=== PATIENT | female | born 1990 | race Hispanic/Latino ===

== ENCOUNTER 2018-04-24 20:47 | Emergency (ER) | payer MEDICAID ==
[~2018-04-24] VITALS: Ht 160 cm; Wt 146.6 kg
[~2018-04-24 20:47] MED LIST: ELIMITE5 % EX; FIORICET PO; HYDROCORTISONE1.5 GM EX; NO CURRENT MEDS; PRE-NATAL OR; PRENATABS OR; TENORMIN25 M1 PO; TYLENOL500 MG PO; ULTRAM50 M1 OR
[2018-04-24 21:39] LABS: HEMATOCRIT 38.8 % (37.0-47.0); HEMOGLOBIN 12.4 g/dl (12.0-16.0); IMMATURE GRANULOCYTES 0.3 % (0.0-1.0); MEAN CELL VOLUME 81.7 fL CALC (80.0-100.0); MEAN CORPUSCULAR HGB 26.1 pG CALC (26.0-32.0); NEUT# 6.5 thou/uL (2.00-7.15); RED BLOOD COUNT 4.75 mill/uL (4.20-5.60); RED CELL DISTRI WIDTH 14.1 % (11.5-15.5)
[2018-04-24 21:53] LABS: ALBUMIN 4.4 g/dL (3.2-5.0); ALKALINE PHOSPHATASE 82 u/l (38-126); ANION GAP 18 (6-22 (CALC)); BILIRUBIN, TOTAL 0.4 mg/dL (0.0-1.4); BUN 13 mg/dL (7-17); BUN/CREATININE RATIO 17 (12-20 (CALC)); CARBON DIOXIDE 25 mmol/l (22-30); CHLORIDE 104 mmol/l (95-108); CREATININE 0.8 mg/dL (0.5-1.0); GFR > 60 ML/MIN (>=60 (CALC)); GFR FOR AFR.AMER. > 60 ML/MIN (>=60 (CALC)); POTASSIUM 3.7 mmol/l (3.5-5.1); SGPT/ALT 73 u/l (9-52); SODIUM 143 mmol/l (137-146); TOTAL PROTEIN 8.9 g/dL (6.3-8.2)
[2018-04-24 21:55] LABS: SGOT/AST 135 u/l (14-36)
[2018-04-24] MEDS ORDERED: VOLTAREN - GENE75 MG PO (22:23)
[2018-04-24 22:25] VITALS: BP 134/77
== END 2018-04-24 22:34 | disposition home or self-care (01) | DRG 313 ==
LOC: ED 20:47
PROVIDERS: Family Medicine
DX: R07.89 Other chest pain (principal); I10 Essential (primary) hypertension; F17.210 Nicotine dependence, cigarettes, uncomplicated

== ENCOUNTER 2018-11-21 08:48 | Emergency (ER) | payer MEDICAID ==
[~2018-11-21] VITALS: Ht 160 cm; Wt 119.0 kg
[~2018-11-21 08:48] MED LIST changes: +VOLTAREN - GENE75 MG PO
[2018-11-21 09:55] LABS: HEMATOCRIT 33.6 % (37.0-47.0); IMMATURE GRANULOCYTES 0.4 % (0.0-5.0); MEAN CORPUSCULAR HGB 23.6 pG CALC (26.0-32.0); NEUT# 4.65 thou/uL (2.00-7.15); RED BLOOD COUNT 4.41 mill/uL (4.20-5.60); RED CELL DISTRI WIDTH 15.4 % (11.5-15.5)
[2018-11-21 09:58] LABS: URINE BILIRUBIN - DIPSTICK NEGATIVE (NEGATIVE); URINE BLOOD DIPSTICK LARGE (NEGATIVE); URINE GLUCOSE - DIPSTICK NEGATIVE (NEGATIVE); URINE KETONE TRACE mg/dL (NEGATIVE); URINE LEUK ESTERASE TRACE (NEGATIVE); URINE NITRITE - DIPSTICK NEGATIVE (Negative); URINE PROTEIN - DIPSTICK 30 mg/dL (NEG-TRACE); URINE SPECIFIC GRAVITY >=1.030; URINE UROBILINOGEN - DIPSTICK 0.2 E.U./dL (0.2)
[2018-11-21 10:08] LABS: URINE COLOR DK. YELLOW
[2018-11-21 10:09] LABS: ANION GAP 11 (6-22 (CALC)); BUN 11 mg/dL (7-17); BUN/CREATININE RATIO 17 (12-20 (CALC)); CARBON DIOXIDE 24 mmol/l (22-30); CHLORIDE 106 mmol/l (95-108); CREATININE 0.6 mg/dL (0.5-1.0); GFR > 60 ML/MIN (>=60 (CALC)); GFR FOR AFR.AMER. > 60 ML/MIN (>=60 (CALC)); POTASSIUM 3.8 mmol/l (3.5-5.1); SODIUM 136 mmol/l (137-146)
[2018-11-21 10:10] LABS: URINE EPITHELIAL CELLS MODERATE EPI/hpf (0-FEW); URINE MUCUS FEW hpf (NONE-FEW); URINE RBC 50-100 RBC/hpf (0-5)
[2018-11-21 10:11] LABS: HEMOGLOBIN 10.4 g/dl (12.0-16.0); MEAN CELL VOLUME 76.2 fL CALC (80.0-100.0)
[2018-11-21 10:28] LABS: BETA-HCG, QUANT(RESULT NUMBER) <2 mIU/mL
[2018-11-21 12:10] VITALS: BP 111/60
== END 2018-11-21 12:10 | disposition home or self-care (01) ==
LOC: ED 08:48
PROVIDERS: Family Medicine
DX: N93.9 Abnormal uterine and vaginal bleeding, unspecified (principal); R10.2 Pelvic and perineal pain; I10 Essential (primary) hypertension; I34.1 Nonrheumatic mitral (valve) prolapse; F17.210 Nicotine dependence, cigarettes, uncomplicated

== ENCOUNTER 2019-09-09 05:09 | Emergency (ER) | payer SELFPAY ==
[~2019-09-09] VITALS: Ht 160 cm; Wt 140.0 kg
[2019-09-09] MEDS ORDERED: HYDROCO/APAP1 TA9 PO (05:40)
[2019-09-09] MEDS ORDERED: AMOXICILLIN500 MG PO (05:40)
[2019-09-09 06:09] VITALS: BP 141/74
== END 2019-09-09 06:09 | disposition home or self-care (01) | DRG 159 ==
LOC: ED 05:09
DX: K04.7 Periapical abscess without sinus (principal); K02.9 Dental caries, unspecified; I34.1 Nonrheumatic mitral (valve) prolapse; F17.200 Nicotine dependence, unspecified, uncomplicated

== ENCOUNTER 2019-12-20 14:22 | Emergency (ER) | payer MEDICAID ==
[~2019-12-20 14:22] MED LIST changes: +AMOXICILLIN500 MG PO; +HYDROCO/APAP1 TA9 PO
[2019-12-20] MEDS ORDERED: AMOXICILLIN500 M2 PO ×2 (14:41)
[2019-12-20 14:50] VITALS: BP 135/85
== END 2019-12-20 14:50 | disposition home or self-care (01) ==
LOC: ED 14:22
DX: K04.7 Periapical abscess without sinus (principal); M84.68XA Pathological fracture in other disease, other site, initial encounter for fracture; F17.210 Nicotine dependence, cigarettes, uncomplicated

== ENCOUNTER 2020-07-06 06:49 | Emergency (ER) | payer MEDICAID ==
[~2020-07-06] VITALS: Ht 160 cm; Wt 147.0 kg
[~2020-07-06 06:49] MED LIST changes: +AMOXICILLIN500 M2 PO
[2020-07-06 07:28] LABS: HEMATOCRIT 38.7 % (37.0-47.0); HEMOGLOBIN 11.7 g/dl (12.0-16.0); IMMATURE GRANULOCYTES 0.4 % (0.0-5.0); MEAN CELL VOLUME 79.8 fL CALC (80.0-100.0); MEAN CORPUSCULAR HGB 24.1 pG CALC (26.0-32.0); MEAN CORPUSCULAR HGB CONC 30.2 g/dL CAL (32.0-36.0); NEUT# 5.44 thou/uL (2.00-7.15); RED BLOOD COUNT 4.85 mill/uL (4.20-5.60); RED CELL DISTRI WIDTH 20.9 % (11.5-15.5)
[2020-07-06 07:34] LABS: URINE BILIRUBIN - DIPSTICK NEGATIVE (NEGATIVE); URINE BLOOD DIPSTICK NEGATIVE (NEGATIVE); URINE COLOR YELLOW; URINE GLUCOSE - DIPSTICK NEGATIVE (NEGATIVE); URINE KETONE NEGATIVE (NEGATIVE); URINE LEUK ESTERASE NEGATIVE (NEGATIVE); URINE NITRITE - DIPSTICK NEGATIVE (Negative); URINE PROTEIN - DIPSTICK NEGATIVE (NEG-TRACE); URINE SPECIFIC GRAVITY 1.025; URINE UROBILINOGEN - DIPSTICK 0.2 E.U./dL (0.2)
[2020-07-06 07:43] LABS: URINE SQUAMOUS EPITHELIAL CELL MANY EPI/hpf (0-FEW)
[2020-07-06 07:53] LABS: ALKALINE PHOSPHATASE 76 u/l (38-126); ANION GAP 13 (6-22 (CALC)); BILIRUBIN, TOTAL 0.5 mg/dL (0.0-1.4); BUN 10 mg/dL (7-17); BUN/CREATININE RATIO 17 (12-20 (CALC)); CARBON DIOXIDE 25 mmol/l (22-30); CHLORIDE 101 mmol/l (95-108); CREATININE 0.6 mg/dL (0.5-1.0); GFR > 60 ML/MIN (>=60 (CALC)); GFR FOR AFR.AMER. > 60 ML/MIN (>=60 (CALC)); SGOT/AST 85 u/l (14-36); SODIUM 135 mmol/l (137-146); TOTAL PROTEIN 7.3 g/dL (6.3-8.2)
[2020-07-06] MEDS ORDERED: IRON325 M1 PO (08:34)
[2020-07-06] MEDS ORDERED: NAPROXEN DR500 MG PO ×2 (09:08)
[2020-07-06 09:15] VITALS: BP 102/64
== END 2020-07-06 09:15 | disposition home or self-care (01) ==
LOC: ED 06:49
PROVIDERS: Student in an Organized Health Care Education/Training Program
DX: R10.9 Unspecified abdominal pain (principal); F17.200 Nicotine dependence, unspecified, uncomplicated

== ENCOUNTER 2020-09-04 17:43 | Emergency (ER) | payer MEDICAID ==
[~2020-09-04] VITALS: Ht 160 cm; Wt 144.5 kg
[~2020-09-04 17:43] MED LIST changes: +IRON325 M1 PO; +NAPROXEN DR500 MG PO
[2020-09-04] MEDS ORDERED: AMOXICILLIN875 MG PO (18:30)
[2020-09-04 18:38] VITALS: BP 173/94
== END 2020-09-04 18:38 | disposition home or self-care (01) ==
LOC: ED 17:43
DX: J02.0 Streptococcal pharyngitis (principal); I34.1 Nonrheumatic mitral (valve) prolapse; F17.210 Nicotine dependence, cigarettes, uncomplicated

== ENCOUNTER 2021-04-17 18:12 | Emergency (ER) | payer MEDICAID ==
[~2021-04-17] VITALS: Ht 160 cm; Wt 106.0 kg
[~2021-04-17 18:12] MED LIST changes: +AMOXICILLIN875 MG PO
[2021-04-17 19:48] VITALS: BP 145/62
== END 2021-04-17 20:03 | disposition home or self-care (01) ==
LOC: ED 18:12
DX: S93.401A Sprain of unspecified ligament of right ankle, initial encounter (principal); F17.210 Nicotine dependence, cigarettes, uncomplicated; X50.0XXA Overexertion from strenuous movement or load, initial encounter; Y93.89 Activity, other specified; Y92.89 Other specified places as the place of occurrence of the external cause; Y99.0 Civilian activity done for income or pay

== ENCOUNTER 2021-12-16 17:19 | Emergency (ER) | payer MEDICAID ==
[~2021-12-16] VITALS: Ht 160 cm; Wt 106.0 kg
[2021-12-16 18:18] LABS: IMMATURE GRANULOCYTES 0.1 % (0.0-5.0); MEAN CELL VOLUME 76.3 fL CALC (80.0-100.0); MEAN CORPUSCULAR HGB CONC 28.9 g/dL CAL (32.0-36.0); NEUT# 4.47 thou/uL (2.00-7.15); RED BLOOD COUNT 4.22 mill/uL (4.20-5.60); RED CELL DISTRI WIDTH 16.1 % (11.5-15.5)
[2021-12-16 18:19] LABS: HEMATOCRIT 32.2 % (37.0-47.0); HEMOGLOBIN 9.3 g/dl (12.0-16.0)
[2021-12-16 18:31] LABS: HCG SERUM/URINE (NEG/POS) NEGATIVE (NEGATIVE)
[2021-12-16 18:34] LABS: ALBUMIN 3.7 g/dL (3.2-5.0); ALKALINE PHOSPHATASE 101 u/l (38-126); ANION GAP 10 (6-22 (CALC)); BILIRUBIN, TOTAL 0.4 mg/dL (0.0-1.4); BUN 12 mg/dL (7-17); BUN/CREATININE RATIO 15 (12-20 (CALC)); CARBON DIOXIDE 29 mmol/l (22-30); CHLORIDE 102 mmol/l (95-108); CREATININE 0.8 mg/dL (0.5-1.0); GFR > 60 ML/MIN (>=60 (CALC)); GFR FOR AFR.AMER. > 60 ML/MIN (>=60 (CALC)); LIPASE 108 u/l (23-300); SGOT/AST 72 u/l (14-36); SODIUM 137 mmol/l (137-146)
[2021-12-16] MEDS ORDERED: TESSALON PERLE100 MG PO (18:55)
[2021-12-16] MEDS ORDERED: MEDDOSEPAK PO (18:55)
[2021-12-16] MEDS ORDERED: ZPAK PO (18:55)
[2021-12-16 19:55] VITALS: BP 124/62
== END 2021-12-16 20:07 | disposition home or self-care (01) ==
LOC: ED 17:19
DX: J40 Bronchitis, not specified as acute or chronic (principal); I34.1 Nonrheumatic mitral (valve) prolapse; F17.210 Nicotine dependence, cigarettes, uncomplicated; Z20.818 Contact with and (suspected) exposure to other bacterial communicable diseases; Z20.822 Contact with and (suspected) exposure to COVID-19

== ENCOUNTER 2022-01-19 13:34 | Emergency (ER) | payer MEDICAID ==
[~2022-01-19 13:34] MED LIST changes: +MEDDOSEPAK PO; +TESSALON PERLE100 MG PO; +ZPAK PO
== END 2022-01-19 14:28 | disposition left against medical advice (07) | DRG 951 ==
LOC: ED 13:34 → LWOBS 14:27
DX: Z53.21 Procedure and treatment not carried out due to patient leaving prior to being seen by health care provider (principal)

== ENCOUNTER 2024-05-30 20:00 | Emergency (ER) | payer OTHER ==
[~2024-05-30] VITALS: Ht 160 cm; Wt 146.0 kg
[2024-05-30 20:02] VITALS: BP 149/88
[2024-05-30] MEDS ORDERED: SULFAMETHOXAZOLE W/TRIMETHOPRI 1 COMBO TAB PO ONE (20:20)
[2024-05-30] MEDS ORDERED: BACTRIM DS1 TAB PO (20:23)
== END 2024-05-30 20:54 | disposition home or self-care (01) | DRG 603 ==
LOC: ED 20:00
DX: L03.116 Cellulitis of left lower limb (principal); I34.1 Nonrheumatic mitral (valve) prolapse; F17.210 Nicotine dependence, cigarettes, uncomplicated

== ENCOUNTER 2024-10-21 18:01 | Emergency (ER) | payer OTHER ==
[~2024-10-21 18:01] MED LIST changes: +BACTRIM DS1 TAB PO
== END 2024-10-21 18:54 | disposition left against medical advice (07) | DRG 951 ==
LOC: ED 18:01 → LWOBS 18:54
DX: Z53.21 Procedure and treatment not carried out due to patient leaving prior to being seen by health care provider (principal)